=== PATIENT | male | born 1955 | race Caucasian/White ===

== ENCOUNTER 2020-05-28 10:10 | Outpatient (CLI) | payer OTHER ==
[2020-05-28 10:57] LABS: ANION GAP 7 mmol/L (5-15); CALCIUM 9.1 mg/dL (8.5-10.1); CHLORIDE 110 mmol/L (98-107); CREATININE 1.19 mg/dL (0.7-1.3)
== END 2020-05-28 23:59 | disposition home or self-care (01) ==
LOC: LAB 10:10
PROVIDERS: ATTEND Ophthalmology
DX: Z01.812 Encounter for preprocedural laboratory examination (principal); C44.1121 Basal cell carcinoma of skin of right upper eyelid, including canthus
CPT/HCPCS: 36415; 80048